=== PATIENT | female | born 1990 | race Caucasian/White ===

== ENCOUNTER 2018-04-05 04:50 | Inpatient (IN) ==
[2018-04-05] MEDS ORDERED: OXYTOCIN 20 UNITS in RINGER'S SOLUTION,LACTATED 1,000 ML IV ONE (04:53)
[2018-04-05] MEDS ORDERED: RINGER'S SOLUTION,LACTATED 1,000 ML IV PRN (04:53)
[2018-04-05 05:24] LABS: Hematocrit 30.4 % (37.0-47.0); Mean Cell Volume 82.8 fl (78-100); Mean Corpuscular Hemoglobin 27.2 pg (27-31); Mean Corpuscular Hgb Conc 32.9 g/dl (32-36); Mean Platelet Volume 12.8 fl (8-12.5); Neutrophil # 4.3 K/mm3 (1.3-6.0); Neutrophil % 57.4 % (42-75.0); Platelet Count 187 K/mm3 (150-450); Red Blood Count 3.67 M/mm3 (4.2-5.4); Red Cell Distribution Width 13.1 % (11.5-14.0); White Blood Count 7.6 K/mm3 (4.0-10.5)
[2018-04-05] MEDS ORDERED: ceFAZolin SODIUM/DEXTROSE,ISO 2 GM/50 ML BAG IV ONE (05:30)
[2018-04-05] MEDS: RINGER'S SOLUTION,LACTATED 1,000 ML IV PRN ×2 (06:19→09:40)
--- NOTE | 2018-04-05 07:39 | ANES ---
Anesthesia Pre Procedure Eval Vitals/Labs: Last Vital Signs Temp 36.9 C 04/05/18 06:06 Pulse 69 04/05/18 06:06 Resp 18 04/05/18 06:06 BP 132/91 H 04/05/18 06:06 Pulse Ox 97 04/05/18 06:06 HOME MEDICATIONS acetaminophen 500 mg tablet 1,000 mg PO Q6H PRN tab 09/15/17 [Last Taken Unknown] vitamin,calcium,qzedpmqh-uryv-vtqzb acid tablet 1 tab PO DAILY 09/15/17 [Last Taken 04/04/18] wfqrehjrlv-pnoykvxswxake-hhprzyie 50 mg-300 mg-40 mg capsule 1 cap PO Q6H PRN #15 cap 12/15/17 [Last Taken 01/24/18] breast pump See Dose Instructions .ROUTE .MEDSUPPLY #1 ea 12/21/17 [Last Taken Unknown] Allergies/Adverse Reactions: Allergies Allergy/AdvReac Type Severity Reaction Status Date / Time No Known Allergies Allergy Verified 04/05/18 05:17 - Planned Procedure Planned Procedure: Section with Bilateral Salpingectomy Medication List Reviewed:: Yes Allergies Verified: Yes Medical History (Last Reviewed 04/05/18 @ 07:38 by Mykel Berumen CRNA) Anxiety disorder (Chronic) Onset Date: 01/04/14 Abdominal pain Onset Date: 11/08/14 , missed Onset Date: 10/2010 Allergic rhinitis Gestational hypertension Onset Date: 02/14/13 Migraine with aura high risk Onset Date: 02/14/13 Surgical History (Last Reviewed 04/05/18 @ 07:38 by Mykel Berumen CRNA) delivery delivered 10/22/2009, 2012, 2014 History of dilation and curettage Onset Date: 04/21/12 Dr Godwin History of tonsillectomy Onset Date: 2007 also had ears drained at same time Family History (Last Reviewed 04/05/18 @ 07:38 by Mykel Berumen CRNA) Grandfather Hypertension Heart murmur Father Alive and well Grandmother Cancer, Onset Age: 23 cervical Grandmother Diabetes Cancer Lung Mother Heart murmur Anemia Hypertension Endometriosis - Family Anesthesia History Family History:: no untoward family reactions to anesthesia - Airway/Neck/Teeth Within Normal Limits:: Yes Teeth Condition: intact Neck Exam: full range of motion Mallampatti Score: 2 Thyromental (T-M) distance: > 6 cm Mandibulo Hyoid distance: > 3 cm - Respiratory Respiratory Physical: lungs clear Smoking Status: Never smoker Sleep Apnea currently treated: No Sleep Apnea by current assessment: No - Cardiovascular Tolerate Activity: Good Heart Sounds: S1 & S2, Regular - Anesthesia Assessment and Plan ASA Class: PS, II Anesthesia Type Plan: Spinal - Bilat TAP block for postop analgesia
[2018-04-05 09:49] LABS: Cocaine Ur Negative (NEGATIVE); Urine Barbiturate Negative (NEGATIVE); Urine Benzodiazepines Negative (NEGATIVE); Urine Opiates Negative (NEGATIVE); Urine PCP Negative (NEGATIVE); Urine THC Negative (NEGATIVE)
[2018-04-05] MEDS ORDERED: oxyCODONE HCL/ACETAMINOPHEN 1 TAB TABLET PO PRN (09:57)
[2018-04-05] MEDS ORDERED: KETOROLAC TROMETHAMINE 30 MG/ML VIAL IV PRN (09:57)
[2018-04-05] MEDS ORDERED: ONDANSETRON HCL/PF 2 MG/ML VIAL IV PRN (09:57)
[2018-04-05] MEDS ORDERED: BISACODYL 10 MG SUPP.RECT RC PRN (09:57)
[2018-04-05] MEDS ORDERED: SENNOSIDES 8.6 MG TABLET PO PRN (09:57)
--- NOTE | 2018-04-05 09:57 | OR ---
Operative Report - Dictated Report Narrative: DATE OF PROCEDURE: 04/05/2018 PROCEDURE: 1. Repeat low transverse section and bilateral salpingectgomy ANESTHESIA: Spinal. PREOPERATIVE DIAGNOSES: 1. Intrauterine at 38 0/7 weeks 2. Previous c-sections x 3 3. Desiring sterilization with bilateral salpingectomy 4. Anemia POSTOPERATIVE DIAGNOSES: 1. Intrauterine at 38 0/7 weeks 2. Previous c-sections x 3 3. Desiring sterilization with bilateral salpingectomy 4. Anemia SURGEON: Eleazar Simpson M.D. THREAD LASTER: Bita Salguero FINDINGS: 1. male infant in cephalic presentation. clear amniotic fluid. Weight 3375 g, 8/9, Time of delivery: 08:30 2. Normal uterus, and normal bilateral ovaries and tubes SPECIMENS: bilateral fallopian tubes DRAIN: Talamantes to gravity. URINE OUTPUT: 200 ml. BLOOD LOSS: 450 ml. IV FLUIDS: 2000 ml COMPLICATIONS: None. Description of Operative Procedure: The patient consented prior to the operation and was taken to the operating room. Spinal anesthesia was performed without complications. The patient was then placed in the dorsal supine position with leftward tilt. Sequential compression device was placed on the lower extremities and a Talamantes catheter was placed into the bladder. Two grams of Ancef was given prior to the start of anesthesia. The abdomen was prepped with Chloraprep and draped in the usual sterile fashion. A time-out procedure was conducted to confirm the correct patient for the correct procedure. Anesthesia was tested and appeared adequate. A Pfannenstiel skin incision was made with a scalpel. The incision was carried through the subcutaneous layer to the fascia. The fascia was nicked at the midline and extended laterally with Hanley scissors. The upper edge of the fascia incision was grasped with two Arthur clamps, elevated, and the underlying rectus muscles were dissected off. The Arthur clamps were repositioned to the lower edge of the fascia incision, which was tented up and dissected off from the rectus muscles. The rectus muscles were held up with Allis clamps and the midline between the rectus muscles was dissected sharply with the scalpel. The peritoneum was entered sharply with a scalpel. The peritoneal incision was extended superiorly and inferiorly with good visualization of the bladder. A bladder blade was inserted. The vesicouterine peritoneum was identified, grasped with a smooth pick-ups, and entered sharply with Matzenbaum scissors. The incision was extended laterally, and a bladder flap was created. The bladder blade was repositioned. The lower uterine segment was incised in a transverse fashion with the scalpel. The incision was extended laterally by stretching. Th e bladder blade was removed. The amniotic sac was ruptured with clear fluid. The baby was in cephalic presentation. The head was elevated through the incision. Fundal pressure was applied and the baby was delivered atraumatically. Baby cried immediately after . A nuchal cord was reduced. The cord was clamped and cut. The baby was handed off to the angle bender and nurse in attendance. Cord blood was obtained. The placenta was removed manually. The uterus was exteriorized, and cleared off clots and membrane. The uterine incision was closed with 0 vicryl in a running-lock fashion. Good hemostasis and reapproximation were obtained. Attention was turned to the sterilization procedure. The left fallopian tube was identified and elevated with a Iola clamp. The cornue portion of the tube was cauterized with a Kleppinger. The left tube was divided at the cornue with a Bonnie. The mesosalpinx was incised with a Bonnie in the avascular area. Vessels in the mesosalpinx was ligated with 2-0 vicryl. The fimbria portion of the tube was divided from the ovary. Hemostasis was assured. The same procedure was performed on the right tube. The posterior cul-de-sac was cleared off clots and fluid. The uterus was returned to the abdomen. The gutters were cleared of blood clots and fluid. The peritoneum was closed with 2-0 Vicryl. The rectus muscle was inspected and found hemostatic. The fascia was reapproximated with #1 Vicryl in running fashion. The subcutaneous layer was irrigated with saline. The subcutaneous layer was closed with 2-0 vicryl interruptedly. The skin was closed with 3-0 Monocryl suture in a subcuticular fashion. Benzoin was applied to the incision edges. The incision was covered with Steri strips, Telfa, ABD and adhesive pressure dressing tape. The patient tolerated the procedure well. Sponge, lap, needle and instrument counts were correct x 2. The patient was taken to the recovery room in stable condition. Eleazar Simpson MD History for MU Definition: * The number of deliveries resulting in a live the patient experienced prior to current hospitalization * The previous delivery of live twins or any live multiple gestation is considered one live event. *If primagravida or nulliparous is documented select zero for the number of previous live births. Live Events: 3
--- NOTE | 2018-04-05 10:06 | ANES ---
Post Anesthesia Discharge - Transfer of Care Transfer of Care handoff given to nurse: Yes - Discharge from PACU Discharge from PACU when meets criteria: Yes
[2018-04-05] MEDS: oxyCODONE HCL/ACETAMINOPHEN 1 TAB TABLET PO PRN ×2 (13:39→17:04)
--- NOTE | 2018-04-05 18:14 | ANES ---
Post Anesthesia Assessment - Vital Signs Vitals: Last Vital Signs Temp 36.5 C 04/05/18 17:10 Pulse 55 L 04/05/18 17:10 Resp 16 04/05/18 17:10 BP 147/77 H 04/05/18 17:10 Pulse Ox 95 04/05/18 17:10 Airway Patency: Normal - Mental Status Level Of Consciousness: Awake - Pain Level Pain Score: 2 - N/V Assessment Nausea/Vomiting Presence: None Dehydration:: No
[2018-04-05] MEDS: KETOROLAC TROMETHAMINE 30 MG/ML VIAL IV PRN (20:19)
[2018-04-05] MEDS: DOCUSATE SODIUM 100 MG CAPSULE PO SCH (20:21)
[2018-04-06] MEDS: KETOROLAC TROMETHAMINE 30 MG/ML VIAL IV PRN (05:53)
[2018-04-06] MEDS: SIMETHICONE 80 MG TAB.CHEW PO PRN ×2 (06:17→17:35)
[2018-04-06] MEDS: oxyCODONE HCL/ACETAMINOPHEN 1 TAB TABLET PO PRN ×4 (08:16→20:23)
[2018-04-06] MEDS: DOCUSATE SODIUM 100 MG CAPSULE PO SCH ×2 (08:16→20:23)
--- NOTE | 2018-04-06 10:33 | PN ---
Subjective - Date and Time Seen Date: 04/06/18 Subjective Narrative: post op day 1, s/p repeat c/s and BS. no complaints. ambulating, tolerating diet well. passed flatus. pain controlled. voided. normal lochia. . Objective - Vitals Vitals: Last Vital Signs Temp 36.7 C 04/06/18 06:35 Pulse 59 L 04/06/18 06:35 Resp 16 04/06/18 06:35 BP 135/84 04/06/18 06:35 Pulse Ox 97 04/06/18 06:35 - Exam Constitutional: Present: Alert, Oriented x3, Cooperative Respiratory: Present: no respiratory distress Abdomen: Present: soft, nontender, other - dressing dry. Extremity: Present: no pedal edema, no calf tenderness Skin Exam: Present: normal color, warm/dry, no cyanosis Appearance: Present: appropriate appearance Eye contact: Present: cooperative, good eye contact, normal speech Cauti Physician Documentation - Urinary Catheter Management Urethral (Talamantes) Date of Insertion: 04/05/18 Time of Insertion: 08:05 Date of Removal: 04/05/18 Time of Removal: 20:10 Assessment/Plan Plan Narrative: A: post op day 1, s/p repeat c/s and BS, stable and well. plan: routine post op and care. ambulation encouraged. Eleazar Simpson MD
[2018-04-06] MEDS: IBUPROFEN 800 MG TABLET PO PRN ×2 (12:11→18:49)
[2018-04-07] MEDS: IBUPROFEN 800 MG TABLET PO PRN ×3 (04:16→20:07)
[2018-04-07] MEDS: oxyCODONE HCL/ACETAMINOPHEN 1 TAB TABLET PO PRN ×6 (04:16→23:13)
[2018-04-07] MEDS: DOCUSATE SODIUM 100 MG CAPSULE PO SCH ×2 (08:20→23:14)
--- NOTE | 2018-04-07 16:38 | PN ---
Subjective - Date and Time Seen Date: 04/07/18 Subjective Narrative: post op day 2, s/p repeat c/s and BS BP intermittently elevated. no complaints. ambulating well and pain controlled. lochia normal. . Objective - Vitals Vitals: Last Vital Signs Temp 36.7 C 04/07/18 15:17 Pulse 75 04/07/18 15:17 Resp 20 04/07/18 15:17 BP 121/75 04/07/18 15:17 Pulse Ox 97 04/07/18 15:17 - Exam Constitutional: Present: Alert, Oriented x3, Cooperative Respiratory: Present: no respiratory distress Cardiovascular/Chest: Present: normal peripheral pulses Abdomen: Present: soft, nondistended, other - incision dry and clean with steri strip intact. Extremity: Present: normal range of motion, no calf tenderness, lower extremity edema - 1+ bilaterally Skin Exam: Present: normal color, warm/dry, no cyanosis Appearance: Present: appropriate appearance Eye contact: Present: cooperative, good eye contact, normal speech Cauti Physician Documentation - Urinary Catheter Management Urethral (Talamantes) Date of Insertion: 04/05/18 Time of Insertion: 08:05 Date of Removal: 04/05/18 Time of Removal: 20:10 Assessment/Plan Plan Narrative: A: post op day 2, s/p repeat c/s and BS, stable and well. Plan: routine post op and care. Eleazar Simpson MD
[2018-04-08] MEDS: oxyCODONE HCL/ACETAMINOPHEN 1 TAB TABLET PO PRN ×3 (02:51→11:45)
[2018-04-08] MEDS: IBUPROFEN 800 MG TABLET PO PRN ×2 (02:51→11:45)
[2018-04-08 07:37] VITALS: BP 158/88
[2018-04-08] MEDS: DOCUSATE SODIUM 100 MG CAPSULE PO SCH (08:22)
--- NOTE | 2018-04-08 12:10 | PN ---
Subjective - Date and Time Seen Date: 04/08/18 Subjective Narrative: post op day 3, s/p repeat c/s and BS doing well. BP mildly elevated sometimes, but asymptomatic. . normal lochia. pain controlled. Objective - Vitals Vitals: Last Vital Signs Temp 36.5 C 04/08/18 06:45 Pulse 57 L 04/08/18 06:45 Resp 18 04/08/18 06:45 BP 158/88 H 04/08/18 06:45 Pulse Ox 98 04/08/18 06:45 - Exam Constitutional: Present: Alert, Oriented x3, Cooperative Respiratory: Present: no respiratory distress Abdomen: Present: soft, nontender, nondistended, other - incision dry and clean. fundus firm and below umbilicus. Extremity: Present: normal range of motion, no calf tenderness, lower extremity edema - 1+ bilaterally Skin Exam: Present: normal color, warm/dry, no cyanosis Appearance: Present: appropriate appearance Eye contact: Present: cooperative, good eye contact, normal speech Cauti Physician Documentation - Urinary Catheter Management Urethral (Talamantes) Date of Insertion: 04/05/18 Time of Insertion: 08:05 Date of Removal: 04/05/18 Time of Removal: 20:10 Assessment/Plan Plan Narrative: A: post op day 3, stable and well. Plan: will discharge home today. Eleazar Simpson MD
== END 2018-04-08 12:00 | disposition home or self-care (01) | DRG 785 ==
LOC: OB 04:50
PROVIDERS: ADMIT Obstetrics & Gynecology; ATTEND Obstetrics & Gynecology
CPT/HCPCS: 36415; 59025; 64486; 80307; 85025; 86850; 86900; 88302

== ENCOUNTER 2018-04-20 17:45 | Inpatient (IN) ==
[2018-04-20] MEDS ORDERED: CALCIUM GLUCONATE 4.65 MEQ/10 ML VIAL IV PRN (17:51)
[2018-04-20] MEDS ORDERED: MAGNESIUM SULFATE IN WATER 50 ML, MAGNESIUM SULFATE IN WATER 50 ML IV ONE ×2 (17:51)
[2018-04-20] MEDS ORDERED: NIFEdipine 10 MG CAPSULE PO ONE (18:04)
[2018-04-20] MEDS ORDERED: hydrOXYzine PAMOATE 50 MG CAPSULE PO PRN (18:05)
[2018-04-20] MEDS ORDERED: ACETAMINOPHEN 500 MG TABLET PO ONE (18:13)
[2018-04-20] MEDS ORDERED: hydrOXYzine PAMOATE 25 MG CAPSULE ONE (18:16)
[2018-04-20] MEDS ORDERED: hydrOXYzine PAMOATE 25 MG CAPSULE PO PRN (18:22)
[2018-04-20] MEDS ORDERED: MAGNESIUM SULFATE IN WATER 1,000 ML IV SCH (18:30)
--- NOTE | 2018-04-20 19:21 | ANES ---
Anesthesia Procedure Note Procedure Note: ANESTHESIA PROCEDURE NOTE Date of procedure: 04/20/2018. Time of procedure: 1904. Performed by: Terry Berumen CRNA Residential Gas Heat Technician: None . Preprocedure diagnosis: Severe preeclampsia. Difficult IV access. Post procedure diagnosis: Same. Procedure: IV start Indications: Difficult IV access. Findings: 22-gauge Angiocath IV started in patient's left hand. 20-gauge Angiocath IV started in patient's right hand EBL: Minimal. Fluids: N/A. Specimen: N/A. Post procedure condition: The patient tolerated the procedure well. No complications were noted. Thank you for this consultation Terry Berumen CRNA
[2018-04-20 19:22] LABS: White Blood Count 8.8 K/mm3 (4.0-10.5)
[2018-04-20 19:23] LABS: Hematocrit 35.6 % (37.0-47.0); Hemoglobin 11.5 gm/dL (12.5-16.0); Mean Cell Volume 81.7 fl (78-100); Mean Corpuscular Hemoglobin 26.4 pg (27-31); Mean Corpuscular Hgb Conc 32.3 g/dl (32-36); Neutrophil % 47.5 % (42-75.0); Platelet Count 358 K/mm3 (150-450); Red Blood Count 4.36 M/mm3 (4.2-5.4); Red Cell Distribution Width 38.9 % (11.5-14.0)
[2018-04-20 19:24] LABS: Neutrophil # 4.2 K/mm3 (1.3-6.0)
[2018-04-20 19:37] LABS: Urine Bilirubin Negative (NEGATIVE); Urine Blood Negative /ul (NEGATIVE); Urine Ketone Negative (NEGATIVE); Urine Nitrite Negative (NEGATIVE); Urine Protein Negative (NEGATIVE); Urine Urobilinogen Normal (NORMAL); Urine pH 6.5 pH (5.0-7.0)
[2018-04-20 19:40] LABS: Anion Gap 18.3 mmol/L (6.8-13.8); BUN/Creatinine Ratio 19.7 (9.0-21.6); Bilirubin, Total 0.1 mg/dL (0.0-1.1); Ca. Corrected For Albumin 9.5 mg/dL (8.4-10.2); Carbon Dioxide 18.4 mmol/L (24-32.6); Potassium 3.7 mmol/L (3.4-4.6)
[2018-04-20] MEDS ORDERED: LIDOCAINE HCL 20 ML UDC MM ONE (19:40)
[2018-04-20] MEDS ORDERED: MAG HYDROX/ALUMINUM HYD/SIMETH 148 ML BTL PO ONE (19:41)
[2018-04-20 19:43] LABS: Amylase * 49 U/L (25-115); Lipase 171 U/L (73-393)
[2018-04-20] MEDS ORDERED: NIFEdipine 10 MG CAPSULE PO SCH (19:45)
[2018-04-20 19:56] LABS: Urine Appearance Clear (CLEAR); Urine Bacteria TRACE; Urine Color Pale Yellow; Urine RBC None Seen /hpf (0-5); Urine WBC 0-5 /hpf (0-5)
[2018-04-20] MEDS ORDERED: MAG HYDROX/ALUMINUM HYD/SIMETH 30 ML UDC ONE (20:07)
[2018-04-20] MEDS: NIFEdipine 30 MG TAB.SR.24H PO SCH (20:11)
--- NOTE | 2018-04-20 20:11 | HP ---
Chief Complaint - Chief Complaint Date of Service: 04/20/18 Chief Complaint: hypertension and epigastric pain History of Present Illness: 27 yo, CF, , who is about two weeks , status post a repeat 4th c/s and bilateral salpingectomy on 04/05/18. Presents with hypertension and epigastric pain. She called the office this afternoon stating that her blood pressure was high 180/108 and she had a constant epigastric pain. She felt nauseous, but denies vomiting. Denies headache or blurry vision. She had elevated blood pressure after her delivery and it was thought that this would resolve without intervention. However, at her one week post op check, she was noted to have some elevated blood pressure and depression symptoms and her lower extremity swelling had not resolved completely. There was some suspicion of possible preelcampsia at the time, but opted to watch. Due to the significant elevated BP today with the epigastric pain, I suspected that she is developing preecclampsia with severe features. So she was [facility] and plan on starting magnesium for seizure prophylaxis. Upon admission to the [facility], she continued to complain of severe epigastric pain. Her blood pressure was significantly elevated to 201/100. There was difficulty starting an IV on her or to draw the blood work. A stat EKG and stat RUQ ultrasound were ordered due to the significant epigastric pain. EKG showed sinus bradycardia with ventricular rate of 43 with sinus arrhythmia and possible right ventricular conduction delay. Magnesium sulphate was put on hold due to concern of worsening cardiac conduction delay and sinus bradycardia. A stat internal medicine consultation was ordered to help manage elevated BP and sinus bradycardia. Patient was placed in Telemetry for satellite project site monitor. Stat RUQ ultrasound report showed small gall stones, borderline thickening of the gall bladder wall and pericholic fluid, suggesting possible acute cholecystitis. Medical History (Last Reviewed 04/05/18 @ 07:38 by Mykel Berumen CRNA) Anxiety disorder (Chronic) Onset Date: 01/04/14 Abdominal pain Onset Date: 11/08/14 , missed Onset Date: 10/2010 Allergic rhinitis Gestational hypertension Onset Date: 02/14/13 Migraine with aura high risk Onset Date: 02/14/13 Surgical History: Surgical History (Last Updated 04/14/18 @ 10:10 by Barbie Presley RN) delivery delivered Onset Date: ~04/05/18 10/22/2009, 02/18/2013, 07/01/2014, 04/05/18 History of dilation and curettage Onset Date: 04/21/12 Dr Godwin History of tonsillectomy Onset Date: 2007 also had ears drained at same time Family History: Family History (Last Reviewed 04/05/18 @ 07:38 by Mykel Berumen CRNA) Grandfather Hypertension Heart murmur Father Alive and well Grandmother Cancer, Onset Age: 23 cervical Grandmother Diabetes Cancer Lung Mother Heart murmur Anemia Hypertension Endometriosis Social History: Patient Lives/Resources Home Utilized Occupation student nurse Preferred Language Croatian Do you have any samaritan or No cultural preference? Smoking Status Never smoker Have you smoked in the past 12 No months Do you dip or chew tobacco No Abuse History No History of abuse Psych History Hx of Depression (Last Updated 04/14/18 @ 14:53 by Eleazar Simpson MD) No Social History Section defined Review Of Systems (GEN) - Review of Systems Abdominal: Present: Nausea, Other - epigastric pain Misc: All systems neg except as marked Immunizations: IMMUNIZATION HX Immunizations Up to Date Yes History of Influenza Vaccine No Hx Pneumococcal Vaccination No Allergies/Adverse Reactions: Allergies Allergy/AdvReac Type Severity Reaction Status Date / Time No Known Allergies Allergy Verified 04/20/18 18:16 Home Medications: HOME MEDICATIONS vitamin,calcium,kjobzrck-tlfx-sqjis acid tablet 1 tab PO DAILY 09/15/17 [Last Taken 04/19/18 21:00] breast pump See Dose Instructions .ROUTE .MEDSUPPLY #1 ea 12/21/17 [Last Taken Unknown] Ibuprofen [Motrin] 800 mg PO Q8H PRN #30 tab 04/08/18 [Last Taken 04/19/18 09:00] sertraline 50 mg tablet 50 mg PO DAILY #30 tab 04/14/18 [Last Taken 04/20/18 09:00] Exam - Exam Vital Signs: Vital Signs - Last Taken Temp 36.9 C 04/20/18 18:57 Pulse 59 L 04/20/18 18:57 Resp 20 04/20/18 18:57 BP 177/102 H 04/20/18 18:57 Pulse Ox 99 04/20/18 18:57 initial vitals: BP 201/100, 186/108 P 53, 47 Constitutional: Present: Alert, Oriented x3, Cooperative, Acute distress ENT Exam: Present: hearing grossly normal Neck: Present: supple Respiratory: Present: lungs clear, normal breath sounds, no respiratory distress, No rales, No wheezing Cardiovascular/Chest: Present: no JVD, no murmur, bradycardia Abdomen: Present: soft, nondistended, other - epigastric tenderness. incision healed well. Extremity: Present: normal range of motion, no calf tenderness, lower extremity edema - 1+ bilaterally Skin Exam: Present: normal color, warm/dry, no cyanosis Appearance: Present: appropriate appearance Eye contact: Present: cooperative, good eye contact, normal speech Diagnostic Studies: Abnormal Lab Results 04/20/18 04/20/18 Range/Units 19:00 19:25 Hgb 11.5 L (12.5-16.0) gm/dL Hct 35.6 L (37.0-47.0) % MCH 26.4 L (27-31) pg RDW 38.9 H (11.5-14.0) % Eosinophils % 6.7 H (0.0-3.0) % Chloride 107 H (97-106) mmol/L Carbon Dioxide 18.4 L (24-32.6) mmol/L Anion Gap 18.3 H (6.8-13.8) mmol/L ALT 18 L (19-67) U/L Albumin 3.0 L (3.4-5.0) gm/dl Laboratory Results WBC 8.8 K/mm3 (4.0-10.5) 04/20/18 19:00 RBC 4.36 M/mm3 (4.2-5.4) 04/20/18 19:00 Hgb 11.5 gm/dL (12.5-16.0) L 04/20/18 19:00 Hct 35.6 % (37.0-47.0) L 04/20/18 19:00 MCV 81.7 fl (78-100) 04/20/18 19:00 MCH 26.4 pg (27-31) L 04/20/18 19:00 MCHC 32.3 g/dl (32-36) 04/20/18 19:00 RDW 38.9 % (11.5-14.0) H 04/20/18 19:00 Plt Count 358 K/mm3 (150-450) 04/20/18 19:00 MPV 11.0 fl (8-12.5) 04/20/18 19:00 Immature Gran % (Auto) 0.20 % (0.001-0.429) 04/20/18 19:00 Immature Gran # (Auto) 0.02 K/mm3 (0.000-0.0310) 04/20/18 19:00 Neutrophils % 47.5 % (42-75.0) 04/20/18 19:00 Lymphocytes % 38.0 % (20-51) 04/20/18 19:00 Monocytes % 6.6 % (0.0-9) 04/20/18 19:00 Eosinophils % 6.7 % (0.0-3.0) H 04/20/18 19:00 Basophils % 1.0 % (0.0-1.0) 04/20/18 19:00 Nucleated RBC % 0.0 k/mm3 (0-1) 04/20/18 19:00 Neutrophils # 4.2 K/mm3 (1.3-6.0) 04/20/18 19:00 Lymphocytes # 3.36 k/mm3 (1.5-3.5) 04/20/18 19:00 Monocytes # 0.6 k/mm3 (0.0-1.0) 04/20/18 19:00 Eosinophils # 0.6 k/mm3 (0.0-0.7) 04/20/18 19:00 Absolute Basophils 0.1 k/mm3 (0.0-0.1) 04/20/18 19:00 Sodium 140 mmol/L (132-142) 04/20/18 19:25 Plasma Sodium 140 mmol/L (130-142) 04/20/18 19:25 Potassium 3.7 mmol/L (3.4-4.6) 04/20/18 19:25 Chloride 107 mmol/L (97-106) H 04/20/18 19:25 Carbon Dioxide 18.4 mmol/L (24-32.6) L 04/20/18 19:25 Anion Gap 18.3 mmol/L (6.8-13.8) H 04/20/18 19:25 BUN 12 mg/dL (3-23) D 04/20/18 19:25 Creatinine 0.61 mg/dL (0.4-1.4) 04/20/18 19:25 Est GFR (Non-Af Amer) 125 mL/min (60-130) 04/20/18 19:25 BUN/Creatinine Ratio 19.7 (9.0-21.6) 04/20/18 19:25 Random Glucose 98 mg/dL (70-110) 04/20/18 19:25 Calcium 9.0 mg/dL (7.9-10.9) 04/20/18:25 Calcium Adj for Albumin 9.5 mg/dL (8.4-10.2) 04/20/18:25 Total Bilirubin 0.1 mg/dL (0.0-1.1) 04/20/18:25 AST 23 U/L (0-48) 04/20/18:25 ALT 18 U/L (19-67) L 04/20/18:25 Alkaline Phosphatase 109 U/L (50-170) 04/20/18:25 Total Protein 7.0 gm/dL (6.2-8.2) 04/20/18:25 Albumin 3.0 gm/dl (3.4-5.0) L 04/20/18:25 Amylase 49 U/L (25-115) 04/20/18:25 Lipase 171 U/L (73-393) 04/20/18 19:25 Assessment/Plan - Narrative Narrative: 1. preeelcmapsia Patient admitted to OB for suspected preeclampsia with severe features and plan on starting magnesium sulphate. Due to EKG showed a significant bradycardia with ventricular rate of 43 and possible right ventricular conduction delay, magnesium sulphate was not started. PIH labs normal except urine protein/creatine ratio pending. watch for now. 2. Hypertension and bradycardia Internal medicine consult called and Dr. Negrete came and saw the patient. bradycardia resolved, will watch. Patient placed on quality assurance monitor. plan to treat hypertension for now, with procardia XL 30 mg qd (s/p procardia 10 mg po x 1). Labetalol may be contraindicated due to bradycardia. 3. Epigastric pain RUQ ultrasound showed possible acute cholecystitis, but patient is afebrile, labs WBC, amylase, lipase, liver function enzymes were all normal. So will watch, and place on low fat diet. - Assessment/Plan (1) Hypertension Problem: Acute (2) Bradycardia Problem: Acute (3) Epigastric pain Problem: Acute (4) Severe pre-eclampsia, Problem: Acute
[2018-04-20 20:19] LABS: Random Urine Total Protein Less than 6.0 mg/dL (0-12)
--- NOTE | 2018-04-20 20:21 | CONS ---
[facility] - General Date of Service: 04/20/18 Narrative: Patient is two weeks post op from her fourth C section. She had some difficulty with post depression and anxiety, and was started on sertaline. She had some lower extremity swelling last week. This afternoon, she had sudden onset epigastric pain and some nausea. She checked her blood pressure, and it was in the 180's/100's, and she called Dr. Simpson, who advised her to come to the OB floor for possible post pre-eclampsia. She had a heart rate of 43 on EKG, with questionable QT prolongation. She was given a dose of procardia, vistaril, and tylenol, and feels better by the time of my evaluation, with some slight improvement in her blood pressure. Elevated BP/bradycardia - Her heart rate has improved, and she had a rate of 66 on my exam. Would recommend continuing procardia for her BP currently. Her QT is borderline prolonged, but this is likely secondary to her bradycardia at the time of her EKG. OK to continue sertraline. Her BP may be elevated secondary to her epigastric pain and anxiety. Epigastric pain - Ddx includes dyspepsia, cholecystitis, biliary colic, pancreatitis, OR. Her US reads "The gallbladder demonstrates cholelithiasis, trace pericholecystic fluid and mild gallbladder wall thickening which is suggestive of acute cholecystitis." She is afebrile, without an elevated WBC, making cholecystitis unlikely. Could obtain HIDA scan if pain persists, but this could be done outpatient, especially if her pain improves. Normal amylase, lipase makes pancreatitis unlikely. Troponin pending, but OR unlikely given her age. No signs of ischemia or infarct on her EKG. Ordered maalox and viscous lidocaine, and will assess for improvement of her epigastric pain. Source: patient Exam Limitations: no limitations - History of Present Illness Timing/Duration: 1-3 hours Severity: severe Associated Symptoms: nausea Allergies/Adverse Reactions: Allergies No Known Allergies Allergy (Verified 04/20/18 18:16) Home Medications: Home Medications Medication Instructions Recorded Last Taken 1 tab PO DAILY 09/15/17 04/19/18 21:00 vitamin,calcium,bfjjuxei-rpea-ntnjx acid tablet breast pump See Dose Instructions .ROUTE 12/21/17 Unknown .MEDSUPPLY #1 ea Ibuprofen [Motrin] 800 mg PO Q8H PRN #30 tab 04/08/18 04/19/18 09:00 sertraline 50 mg tablet 50 mg PO DAILY #30 tab 04/14/18 04/20/18 09:00 Procedures ANT NASAL PACK FOR EPIST (11/28/09) Extraction of Products of Conception, Low, Open Approach (04/05/18) LOW CERVICAL (10/21/09) Myringotomy with insertion of tube (10/20/07) Other aspiration curettage of uterus (04/21/12) Other monitoring (07/01/14) Resection of Bilateral Fallopian Tubes, Open Approach (04/05/18) Tonsillectomy with adenoidectomy (10/20/07) Review of Systems - Review of Systems Generalized/Overall Review: Absent: Fever Respiratory: Absent: Cough, Shortness of Breath Cardiac: Present: Edema - improved from last week Abdominal: Present: Nausea Genitourinary: Absent: Burning Physical Examination - Exam Vital Signs: Vital Signs - Last Taken Temp 36.9 C 04/20/18 18:57 Pulse 59 L 04/20/18 18:57 Resp 20 04/20/18 18:57 BP 177/102 H 04/20/18 18:57 Pulse Ox 99 04/20/18 18:57 O2 Oxygen Delivery Method Room Air Constitutional: Present: Alert, Oriented x3, Cooperative, No distress ENT Exam: Present: dry mucous membranes - slightly Respiratory: Present: lungs clear, normal breath sounds Cardiovascular/Chest: Present: regular rate, rhythm - heart rate 66 Abdomen: Present: Normal bowel sounds, soft, tender - epigastric. Absent: positive He sign Extremity: Present: lower extremity edema - 1+ bilaterally Appearance: Present: appropriate appearance - Results and Findings: Lab/Microbiology results last 24 hrs: Abnormal/Pending Laboratory Last 24 HRS 04/20/18 04/20/18 19:25 19:00 Hgb 11.5 L Hct 35.6 L MCH 26.4 L RDW 38.9 H Eosinophils % 6.7 H Chloride 107 H Carbon Dioxide 18.4 L Anion Gap 18.3 H ALT 18 L Albumin 3.0 L
[2018-04-20] MEDS: FAMOTIDINE 20 MG TABLET PO SCH (21:42)
[2018-04-21] MEDS: IBUPROFEN 800 MG TABLET PO PRN ×3 (03:24→19:00)
[2018-04-21] MEDS: ACETAMINOPHEN 500 MG TABLET PO PRN ×2 (08:16→19:00)
[2018-04-21] MEDS: FAMOTIDINE 20 MG TABLET PO SCH (08:16)
[2018-04-21] MEDS: NIFEdipine 30 MG TAB.SR.24H PO SCH (08:17)
--- NOTE | 2018-04-21 08:53 | PN ---
Subjective - Date and Time Seen Date: 04/21/18 Time: 08:32 Subjective Narrative: Patient reports having headache overnight. She states she has a history of migraines. Her headache is bilateral and frontal. She was given Motrin, and just received Tylenol prior to my evaluation. Her epigastric pain resolved after administration of Maalox and viscous lidocaine. Her blood pressure has been better as well as her heart rate. She is able to eat without difficulty. No new concerns. Objective - Review of Systems Generalized/Overall Review: Denies: Fever Respiratory: Denies: Shortness of Breath Cardiac: Denies: Chest Pain Abdominal: Denies: Nausea Genitourinary Symptoms: Denies: Burning Neurological: Reports: Headache - Vitals Vitals: Last Vital Signs Temp 36.5 C 04/21/18 04:24 Pulse 75 04/21/18 08:22 Resp 18 04/21/18 08:22 BP 154/84 H 04/21/18 08:26 Pulse Ox 97 04/21/18 08:22 - Abnormal Lab Findings Abnormal Lab Findings: Abnormal Lab Results 04/20/18 04/20/18 04/20/18 Range/Units 17:51 19:00 19:21 Hgb 11.5 L (12.5-16.0) gm/dL Hct 35.6 L (37.0-47.0) % MCH 26.4 L (27-31) pg RDW 38.9 H (11.5-14.0) % Eosinophils % 6.7 H (0.0-3.0) % Chloride (97-106) mmol/L Carbon Dioxide (24-32.6) mmol/L Anion Gap (6.8-13.8) mmol/L ALT (19-67) U/L Albumin (3.4-5.0) gm/dl Ur Leukocyte Esterase 75 H (NEGATIVE) /ul Ur Random Creatinine 20.2 L (60-200) mg/dL U [place] Prot/Creat Ratio 297 H (0-199) mg/gm 04/20/18 Range/Units 19:25 Hgb (12.5-16.0) gm/dL Hct (37.0-47.0) % MCH (27-31) pg RDW (11.5-14.0) % Eosinophils % (0.0-3.0) % Chloride 107 H (97-106) mmol/L Carbon Dioxide 18.4 L (24-32.6) mmol/L Anion Gap 18.3 H (6.8-13.8) mmol/L ALT 18 L (19-67) U/L Albumin 3.0 L (3.4-5.0) gm/dl Ur Leukocyte Esterase (NEGATIVE) /ul Ur Random Creatinine (60-200) mg/dL U [place] Prot/Creat Ratio (0-199) mg/gm - Exam Constitutional: Present: Alert, Oriented x3, Cooperative - Looks uncomfortable Respiratory: Present: normal breath sounds, no respiratory distress Cardiovascular/Chest: Present: regular rate, rhythm - No longer bradycardic Abdomen: Present: soft, nontender Extremity: Absent: lower extremity edema Neurologic: Present: normal mood/affect Assessment/Plan - Problems/Diagnosis (1) Hypertension Problem: Acute Narrative: May have been secondary to her epigastric pain. She was given a dose of Procardia yesterday, and will recommend continuing. Her blood pressure greatly reduced overnight after receiving viscous lidocaine and Mylanta for epigastric pain, indicating her blood pressure may have been secondary to pain. Her BP could still be secondary to pre-eclampsia. Will repeat her EKG, and if no abnormalities, ok to give magnesium. (2) Bradycardia Problem: Resolved Narrative: Heart rate has improved to the 70s. Repeat EKG pending. (3) Epigastric pain Problem: Resolved Narrative: She had sudden onset epigastric pain yesterday around 4:00 in the afternoon. Improvement after Maalox and viscous lidocaine. She did have suggestion of cholecystitis on her ultrasound, however she is not having postprandial pain, and her pain is not present this morning. No changes of her AST, ALT, alk phos, making it unlikely she has acute cholecystitis. Her epigastric pain is likely secondary to gastritis or ulcer. Negative amylase and lipase. Would recommend continuing Pepcid after discharge. (4) Anxiety disorder Problem: Chronic (5) depression Problem: Chronic Narrative: Continue sertraline. Will repeat EKG now that her heart rate has improved. (6) Status post section Problem: Acute
[2018-04-21 09:29] LABS: Hemoglobin 11.8 gm/dL (12.5-16.0); Mean Cell Volume 80.4 fl (78-100); Mean Corpuscular Hemoglobin 26.3 pg (27-31); Mean Corpuscular Hgb Conc 32.8 g/dl (32-36); Mean Platelet Volume 10.7 fl (8-12.5); Neutrophil # 2.9 K/mm3 (1.3-6.0); Platelet Count 369 K/mm3 (150-450); Red Blood Count 4.48 M/mm3 (4.2-5.4); Red Cell Distribution Width 13.1 % (11.5-14.0); White Blood Count 6.4 K/mm3 (4.0-10.5)
[2018-04-21] MEDS ORDERED: MAGNESIUM SULFATE IN WATER 50 ML IV ONE (09:39)
[2018-04-21] MEDS ORDERED: CALCIUM GLUCONATE 4.65 MEQ/10 ML VIAL IV PRN (09:39)
[2018-04-21 09:41] LABS: Albumin * 3.1 gm/dl (3.4-5.0); Anion Gap 14.9 mmol/L (6.8-13.8); BUN/Creatinine Ratio 16.4 (9.0-21.6); Bilirubin, Total 0.3 mg/dL (0.0-1.1); Ca. Corrected For Albumin 9.3 mg/dL (8.4-10.2); Calcium * 8.9 mg/dL (7.9-10.9); Carbon Dioxide 25.3 mmol/L (24-32.6); Magnesium 1.9 mg/dL (1.2-2.8); Potassium 3.2 mmol/L (3.4-4.6); Total Protein 7.1 gm/dL (6.2-8.2)
[2018-04-21] MEDS ORDERED: MAGNESIUM SULFATE IN WATER 1,000 ML IV SCH ×2 (09:45→18:00)
[2018-04-21] MEDS ORDERED: POTASSIUM CHLORIDE 20 MEQ TABLET.SA PO ONE (10:56)
--- NOTE | 2018-04-21 13:33 | PN ---
Subjective - Date and Time Seen Date: 04/21/18 Subjective Narrative: hospital day 1 admitted yesterday for severe elevated blood pressure and epigastric pain. Was planned on starting the magnesium sulphate at the time. This was put on hold due to EKG showing sinus bradycardia HR of 43 with suspicion for conduction delay. Her epigastric pain has resolved. She is tolerated a low fat diet without pain. She has been having a headache since last night, frontal and received ibuprofen overnight nad tylenol this morning. Her headache is mild now. Dr. Negrete saw patient this morning and repeated an EKG, which she read as normal. Due to her persistent elevated BP and a headache, I decided to start her on magnesium sulphate after consulting with Dr. Negrete. I started her on a 4 g load and 2 g/h maintanence. Magnesium sulphate started at 10:10 this morning. She tolerated well by now 13:00. Repeat labs showed low potassium K 3.2, replaced with K-Dur 40 mEq orally. Exam today: vitals: BP 160/92, 144/94, 139/96, 136/87 HR 80s-90s lungs clear. Abdomen: non-distended, soft, and non-tender. Ext: trace edema bilaterally DTR: L knee 2+ and R knee 3+ Plan: continue magnesium sulphate as tolerated/diuresis. strict Is and Os. replace K as needed. check mag and K level 6 hour post magnesium load. continue procardia XL 30 mg qd. Eleazar Simpson MD Objective - Vitals Vitals: Last Vital Signs Temp 36.7 C 04/21/18 10:10 Pulse 86 04/21/18 12:58 Resp 22 H 04/21/18 12:58 BP 136/87 04/21/18 12:58 Pulse Ox 96 04/21/18 12:58 - Abnormal Lab Findings Abnormal Lab Findings: Abnormal Lab Results 04/20/18 04/20/18 04/20/18 Range/Units 17:51 19:00 19:21 Hgb 11.5 L (12.5-16.0) gm/dL Hct 35.6 L (37.0-47.0) % MCH 26.4 L (27-31) pg RDW 38.9 H (11.5-14.0) % Eosinophils % 6.7 H (0.0-3.0) % Basophils % (0.0-1.0) % Sodium (132-142) mmol/L Plasma Sodium (130-142) mmol/L Potassium (3.4-4.6) mmol/L Chloride (97-106) mmol/L Carbon Dioxide (24-32.6) mmol/L Anion Gap (6.8-13.8) mmol/L ALT (19-67) U/L Albumin (3.4-5.0) gm/dl Ur Leukocyte Esterase 75 H (NEGATIVE) /ul Ur Random Creatinine 20.2 L (60-200) mg/dL U [place] Prot/Creat Ratio 297 H (0-199) mg/gm 04/20/18 04/21/18 04/21/18 Range/Units 19:25 09:15 09:15 Hgb 11.8 L (12.5-16.0) gm/dL Hct 36.0 L (37.0-47.0) % MCH 26.3 L (27-31) pg RDW (11.5-14.0) % Eosinophils % 6.5 H (0.0-3.0) % Basophils % 1.1 H (0.0-1.0) % Sodium 144 H (132-142) mmol/L Plasma Sodium 144 H (130-142) mmol/L Potassium 3.2 L (3.4-4.6) mmol/L Chloride 107 H 107 H (97-106) mmol/L Carbon Dioxide 18.4 L (24-32.6) mmol/L Anion Gap 18.3 H 14.9 H (6.8-13.8) mmol/L ALT 18 L (19-67) U/L Albumin 3.0 L 3.1 L (3.4-5.0) gm/dl Ur Leukocyte Esterase (NEGATIVE) /ul Ur Random Creatinine (60-200) mg/dL U [place] Prot/Creat Ratio (0-199) mg/gm Assessment/Plan - Problems/Diagnosis (1) Hypertension Problem: Acute (2) Bradycardia Problem: Resolved (3) Epigastric pain Problem: Resolved (4) Severe pre-eclampsia, Problem: Acute
[2018-04-21 16:32] LABS: Magnesium 5.9 mg/dL (1.2-2.8); Potassium 3.7 mmol/L (3.4-4.6)
[2018-04-22] MEDS: FAMOTIDINE 20 MG TABLET PO SCH ×2 (07:53→08:00)
[2018-04-22] MEDS ORDERED: NIFEdipine 30 MG TAB.SR.24H PO SCH (09:00)
[2018-04-22 09:14] LABS: Hematocrit 40.3 % (37.0-47.0); Hemoglobin 13.2 gm/dL (12.5-16.0); Mean Corpuscular Hemoglobin 26.2 pg (27-31); Mean Corpuscular Hgb Conc 32.8 g/dl (32-36); Mean Platelet Volume 10.6 fl (8-12.5); Neutrophil # 4.8 K/mm3 (1.3-6.0); Neutrophil % 57.1 % (42-75.0); Platelet Count 462 K/mm3 (150-450); Red Blood Count 5.04 M/mm3 (4.2-5.4); Red Cell Distribution Width 13.2 % (11.5-14.0); White Blood Count 8.4 K/mm3 (4.0-10.5)
[2018-04-22 09:27] LABS: Albumin * 3.5 gm/dl (3.4-5.0); Anion Gap 14.1 mmol/L (6.8-13.8); BUN/Creatinine Ratio 14.3 (9.0-21.6); Bilirubin, Total 0.3 mg/dL (0.0-1.1); Ca. Corrected For Albumin 7.2 mg/dL (8.4-10.2); Calcium * 7.1 mg/dL (7.9-10.9); Carbon Dioxide 26.5 mmol/L (24-32.6); Magnesium 7.4 mg/dL (1.2-2.8); Potassium 3.6 mmol/L (3.4-4.6); Total Protein 7.8 gm/dL (6.2-8.2)
--- NOTE | 2018-04-22 09:47 | PN ---
Subjective - Date and Time Seen Date: 04/22/18 Time: 09:38 Subjective Narrative: She reports no new concerns. Still has a headache. Her epigastric pain has not returned. She had some nausea overnight. Is eating and drinking, and able to ambulate to the bathroom. Objective - Review of Systems Generalized/Overall Review: Denies: Fever Respiratory: Denies: Shortness of Breath Cardiac: Denies: Chest Pain Abdominal: Reports: Nausea Genitourinary Symptoms: Reports: No Symptoms Reported - Vitals Vitals: Last Vital Signs Temp 36.8 C 04/22/18 07:32 Pulse 97 04/22/18 09:06 Resp 20 04/22/18 09:06 BP 143/102 H 04/22/18 09:06 Pulse Ox 97 04/22/18 09:06 - Abnormal Lab Findings Abnormal Lab Findings: Abnormal Lab Results 04/21/18 04/21/18 04/22/18 Range/Units 09:15 16:17 09:05 MCH 26.2 L (27-31) pg Plt Count 462 H (150-450) K/mm3 Eosinophils % 4.4 H (0.0-3.0) % Sodium 144 H (132-142) mmol/L Plasma Sodium 144 H (130-142) mmol/L Potassium 3.2 L (3.4-4.6) mmol/L Chloride 107 H (97-106) mmol/L Anion Gap 14.9 H (6.8-13.8) mmol/L Calcium (7.9-10.9) mg/dL Calcium Adj for Albumin (8.4-10.2) mg/dL Magnesium 5.9 H (1.2-2.8) mg/dL Albumin 3.1 L (3.4-5.0) gm/dl 04/22/18 Range/Units 09:05 MCH (27-31) pg Plt Count (150-450) K/mm3 Eosinophils % (0.0-3.0) % Sodium (132-142) mmol/L Plasma Sodium (130-142) mmol/L Potassium (3.4-4.6) mmol/L Chloride (97-106) mmol/L Anion Gap 14.1 H (6.8-13.8) mmol/L Calcium 7.1 L (7.9-10.9) mg/dL Calcium Adj for Albumin 7.2 L (8.4-10.2) mg/dL Magnesium 7.4 H (1.2-2.8) mg/dL Albumin (3.4-5.0) gm/dl - Exam Constitutional: Present: Alert, Oriented x3, No distress Respiratory: Present: lungs clear, no respiratory distress Cardiovascular/Chest: Present: regular rate, rhythm Extremity: Present: lower extremity edema - trace. Tubigrips in place Assessment/Plan - Problems/Diagnosis (1) Hypertension Problem: Acute Narrative: Continue treatment for preeclampsia with magnesium per Dr. Simpson. Continue procardia. Her BP is currently acceptable, with systolic readings of 140's-15 0's over 100's. (2) Bradycardia Problem: Resolved (3) Epigastric pain Problem: Resolved Narrative: Continue pepcid. (4) Anxiety disorder Problem: Chronic (5) depression Problem: Chronic (6) Status post section Problem: Acute (7) Hypokalemia Problem: Resolved Narrative: Her K+ was 3.2 yesterday, improved to 3.6 after 40 mEq KDur.
[2018-04-22] MEDS ORDERED: CALCIUM CARBONATE 500 MG TAB.CHEW PO SCH (10:00)
[2018-04-22] MEDS: IBUPROFEN 800 MG TABLET PO PRN (10:22)
[2018-04-22 11:15] VITALS: BP 157/102
--- NOTE | 2018-04-22 16:53 | DS ---
(1) Hypertension Problem: Acute (2) Bradycardia Problem: Resolved (3) Epigastric pain Problem: Resolved (4) Severe pre-eclampsia, Problem: Acute (5) Status post section Problem: Acute (6) Hypokalemia Problem: Resolved (7) Status post bilateral salpingectomy Problem: Acute Description of Stay: hospital day 2 Patient was admitted for severe elevated blood pressure and epigastric pain, 2 weeks after a repeat c/s with bilateral salpingectomy. I thought she had preeclampsia with severe features and planned on starting her on the magnesium sulphate for seizure prophylaxis at the time. But magnesium sulphate was put on hold due to initial EKG showing sinus bradycardia HR of 43 with suspicion for conduction delay. Internal medicine consultation was requested and Dr. Negrete from [facility] was consulted. She was placed on telemetry for monitoring. She was started on procardia XL 30 mg daily and her blood pressure had decreased to the mild range. She developed a headache throughout her stay. She was subsequently started on magnesium sulphate for 24 hours after repeat EKG was normal. She started diuresis today. She had put out over a 1000 ml of urine by the early afternoon today. Her lower extremity swelling decreased significantly. Her epigastric pain resolved. Her headache is mild. She is tolerated a low fat diet without pain and ambulating well without difficulty. She received K-Dur for low potassium and her potassium level is 3.6 today. Her magnesium level has decreased to 4.3 now (15:35) from 7.4 this morning (9:05). Dr. Negrete saw patient today and agreed that she can be discharged home on procardia XL and follow up with me in one week. Her exam was unremarkable today. Procedures Performed: none Results and Findings: Pending Mircobiology Results 04/20/18 19:36 Urine,Clean Catch Urine Culture - Preliminary No Pathogens Isolated Lab Pending Results 04/20/18 17:51: Ur Random Creatinine 20.2 L, U Random Total Protein Less than 6.0, U [place] Prot/Creat Ratio 297 H 04/20/18 19:00: WBC 8.8, RBC 4.36, Hgb 11.5 L, Hct 35.6 L, MCV 81.7, MCH 26.4 L, MCHC 32.3, RDW 38.9 H, Plt Count 358, MPV 11.0, Immature Gran % (Auto) 0.20, Immature Gran # (Auto) 0.02, Neutrophils % 47.5, Lymphocytes % 38.0, Monocytes % 6.6, Eosinophils % 6.7 H, Basophils % 1.0, Nucleated RBC % 0.0, Neutrophils # 4.2, Lymphocytes # 3.36, Monocytes # 0.6, Eosinophils # 0.6, Absolute Basophils 0.1 04/20/18 19:21: Urine Color Pale yellow, Urine Appearance Clear, Urine pH 6.5, Ur Specific [place] 1.010, Urine Protein Negative, Urine Glucose (UA) Negative, Urine Ketones Negative, Urine Blood Negative, Urine Nitrate Negative, Urine Bilirubin Negative, Urine Urobilinogen Normal, Ur Leukocyte Esterase 75 H, Urine RBC None seen, Urine WBC 0-5, Ur Epithelial Cells 0-5, Urine Bacteria Trace, Urine Culture Comments Culture to follow 04/20/18 19:25: Sodium 140, Plasma Sodium 140, Potassium 3.7, Chloride 107 H, Carbon Dioxide 18.4 L, Anion Gap 18.3 H, BUN 12 D, Creatinine 0.61, Est GFR (Non-Af Amer) 125, BUN/Creatinine Ratio 19.7, Random Glucose 98, Calcium 9.0, Calcium Adj for Albumin 9.5, Total Bilirubin 0.1, AST 23, ALT 18 L, Alkaline Phosphatase 109, Total Protein 7.0, Albumin 3.0 L 04/20/18 19:25: Amylase 49, Lipase 171 04/21/18 09:15: WBC 6.4 D, RBC 4.48, Hgb 11.8 L, Hct 36.0 L, MCV 80.4, MCH 26.3 L, MCHC 32.8, RDW 13.1, Plt Count 369, MPV 10.7, Immature Gran % (Auto) 0.20, Immature Gran # (Auto) 0.01, Neutrophils % 45.0, Lymphocytes % 40.3, Monocytes % 6.9, Eosinophils % 6.5 H, Basophils % 1.1 H, Nucleated RBC % 0.0, Neutrophils # 2.9, Lymphocytes # 2.56, Monocytes # 0.4, Eosinophils # 0.4, Absolute Basophils 0.1 04/21/18 09:15: Sodium 144 H, Plasma Sodium 144 H, Potassium 3.2 L, Chloride 107 H, Carbon Dioxide 25.3, Anion Gap 14.9 H, BUN 11, Creatinine 0.67, Est GFR (Non- Af Amer) 112, BUN/Creatinine Ratio 16.4, Random Glucose 102, Calcium 8.9, Calcium Adj for Albumin 9.3, Magnesium 1.9, Total Bilirubin 0.3, AST 16, ALT 20, Alkaline Phosphatase 102, Total Protein 7.1, Albumin 3.1 L 04/21/18 16:17: Potassium 3.7, Magnesium 5.9 H 04/22/18 09:05: WBC 8.4 D, RBC 5.04, Hgb 13.2, Hct 40.3, MCV 80.0, MCH 26.2 L, MCHC 32.8, RDW 13.2, Plt Count 462 H, MPV 10.6, Immature Gran % (Auto) 0.10, Immature Gran # (Auto) 0.01, Neutrophils % 57.1, Lymphocytes % 31.2, Monocytes % 6.4, Eosinophils % 4.4 H, Basophils % 0.8, Nucleated RBC % 0.0, Neutrophils # 4.8, Lymphocytes # 2.62, Monocytes # 0.5, Eosinophils # 0.4, Absolute Basophils 0.1 04/22/18 09:05: Sodium 139, Plasma Sodium 139, Potassium 3.6, Chloride 102, Carbon Dioxide 26.5, Anion Gap 14.1 H, BUN 10, Creatinine 0.70, Est GFR (Non-Af Amer) 107, BUN/Creatinine Ratio 14.3, Random Glucose 105, Calcium 7.1 L, Calcium Adj for Albumin 7.2 L, Magnesium 7.4 H, Total Bilirubin 0.3, AST 16, ALT 20, Alkaline Phosphatase 110, Total Protein 7.8, Albumin 3.5 04/22/18 15:35: Magnesium 4.3 H Discharge Location: Home Disposition: Home self-care Condition: Stable Face to Face Encounter completed per [facility] Guidelines: Yes Discharge Activity: Activity as tolerated Discharge Diet: General/regular food Referrals: Adelina Sanchez DO [Primary Care Provider] - Prescriptions (Any new or edited meds): NIFEdipine [Procardia Xl] 30 mg PO DAILY #30 tab.sr.24h Complete Home Medications List: Complete Home Medication List: vitamin,calcium,meflwxzh-shxt-zissp acid tablet 1 tab PO DAILY 09/15/17 breast pump See Dose Instructions .ROUTE .MEDSUPPLY #1 ea 12/21/17 sertraline 50 mg tablet 50 mg PO DAILY #30 tab 04/14/18 Acetaminophen [Tylenol] 1,000 mg PO Q8H PRN tablet 04/22/18 Calcium Carbonate [Tums] 1,000 mg PO DAILY tab.chew 04/22/18 NIFEdipine [Procardia Xl] 30 mg PO DAILY #30 tab.sr.24h 04/22/18
== END 2018-04-22 16:58 | disposition home or self-care (01) | DRG 776 ==
LOC: OB 17:45
PROVIDERS: ADMIT Obstetrics & Gynecology; ATTEND Obstetrics & Gynecology
CPT/HCPCS: 36415; 76705; 80053; 81001; 82150; 82570; 83690; 83735; 84132; 84155; 84156; 85025; 87086; 93005